=== PATIENT | male | born 1955 | race Caucasian/White ===

== ENCOUNTER 2022-09-27 08:37 | Day surgery (SDC) | payer OTHER ==
[2022-09-26 10:12] VITALS: BMI 27.3
[2022-09-27 09:54] VITALS: RESP 16; TEMP 97.4
[2022-09-27 10:27] VITALS: BP 125/73; PULSE 75
== END 2022-09-27 10:20 | disposition home or self-care (01) ==
LOC: FASU-ENDO 08:37
PROVIDERS: ATTEND Internal Medicine Gastroenterology
PROC: 0DBL8ZX Excision of Transverse Colon, Via Natural or Artificial Opening Endoscopic, Diagnostic (ICD-10-PCS; principal; 2022-09-27 09:28)
DX: Z12.11 Encounter for screening for malignant neoplasm of colon (principal); K64.1 Second degree hemorrhoids; D12.3 Benign neoplasm of transverse colon
CPT/HCPCS: 88305-TC